=== PATIENT | male | born 1970 | race African-American/Black ===

== ENCOUNTER 2017-03-10 16:59 | Emergency (ER) | payer MEDICARE, OTHER ==
[~2017-03-10] VITALS: Ht 165.1 cm; Wt 49.0 kg
[~2017-03-10 16:59] MED LIST: ALLO100T PO; AMLO10TA80 PO; ASPI-1158; ATENOLOL PO; CALC0.253; CALC667C4 PO; DOXA4TAB3 PO; GARL1000 PO; HUM100IN SQ; INSU3INS6 SUBCUT; INSULIN; LISI40TA4; OMEP20TA80 PO
[2017-03-10] MEDS ORDERED: SODIUM CHLORIDE 0.9% 1,000 ML IV ONE (18:06)
[2017-03-10] MEDS ORDERED: MORPHINE SULFATE 4 MG/ML CPJ (NOT FOR IM USE) IV STA (18:06)
[2017-03-10] MEDS ORDERED: ONDANSETRON HCL 4MG/2ML VIAL IV STA (18:06)
[2017-03-10 18:53] LABS: BASOPHILS % 0.4 % (0.0-2.0); EOSINOPHILS % 3.5 % (0.0-5.0); HEMATOCRIT. 35.8 % (42.0-52.0); HEMOGLOBIN. 11.8 g/dL (14.0-18.0); MEAN CORPUSCULAR HEMOGLOBIN 28.7 pg (28.0-32.0); MEAN CORPUSCULAR VOLUME 86.8 fL (80.0-94.0); MEAN PLATELET VOLUME 10.3 fl (7.4-10.4); MONOCYTES % 7.5 % (2.0-8.0); NEUTROPHILS % 72.6 % (40.0-76.0); PLATELET 100 x1000/uL (130-400); RED BLOOD CELL COUNT 4.12 mill/uL (4.7-6.1); RED CELL DISTRIBUTION WIDTH 15.4 % (11.6-14.6)
[2017-03-10 18:55] LABS: PROTHROMBIN TIME 10.5 sec
[2017-03-10 19:06] LABS: CARBON DIOXIDE 27 mEq/L (21-32); CHLORIDE 108 mEq/L (98-107); ETHANOL BLOOD < 10 mg/dL; TROPONIN I < 0.02 ng/mL (0.00-0.04)
[2017-03-10] MEDS ORDERED: HYDRALAZINE 20MG/ML VIAL IV ONE (19:45)
[2017-03-10 20:40] VITALS: BP 156/78
== END 2017-03-10 20:46 | disposition home or self-care (01) ==
LOC: ER 16:59 → CANBEDREQ 03-11 02:47
DX: R10.84 Generalized abdominal pain (principal); M54.5 Low back pain; F41.9 Anxiety disorder, unspecified; I12.0 Hypertensive chronic kidney disease with stage 5 chronic kidney disease or end stage renal disease; E11.22 Type 2 diabetes mellitus with diabetic chronic kidney disease; N18.6 End stage renal disease; Z99.2 Dependence on renal dialysis; K80.20 Calculus of gallbladder without cholecystitis without obstruction; K76.0 Fatty (change of) liver, not elsewhere classified; E78.00 Pure hypercholesterolemia, unspecified; Z88.0 Allergy status to penicillin; Z79.4 Long term (current) use of insulin; Z79.82 Long term (current) use of aspirin; Z79.899 Other long term (current) drug therapy; Z88.1 Allergy status to other antibiotic agents
CPT/HCPCS: 36415; 71010; 74176; 76705; 80053; 83605; 83690; 84484; 85025; 85610; 93005; 96361; 96374; 96375; 99285; G0482; J2270; J2405; J7030

== ENCOUNTER → 2017-04-05 | Outpatient (CLI) | payer MEDICARE, OTHER | END | disposition home or self-care (01) | LOC: RAD 12:13 | PROVIDERS: ATTEND Internal Medicine Nephrology | DX: Z01.818 Encounter for other preprocedural examination (principal); N18.5 Chronic kidney disease, stage 5; R05 Cough | CPT/HCPCS: 71010 ==

== ENCOUNTER 2017-11-18 12:43 | Emergency (ER) | payer MEDICARE, MEDICAID ==
[~2017-11-18] VITALS: Ht 165.1 cm; Wt 89.0 kg
[~2017-11-18 12:43] MED LIST changes: +OMEP20TA2 PO; -OMEP20TA80 PO
[2017-11-18 18:16] VITALS: BP 134/72
== END 2017-11-18 18:18 | disposition home or self-care (01) ==
LOC: ER 13:20
DX: S80.11XA Contusion of right lower leg, initial encounter (principal); L03.115 Cellulitis of right lower limb; E11.9 Type 2 diabetes mellitus without complications; E78.00 Pure hypercholesterolemia, unspecified; I10 Essential (primary) hypertension; Z79.4 Long term (current) use of insulin; Z88.0 Allergy status to penicillin; Z88.3 Allergy status to other anti-infective agents; Z99.2 Dependence on renal dialysis; Z79.82 Long term (current) use of aspirin; W22.8XXA Striking against or struck by other objects, initial encounter; Y93.84 Activity, sleeping; Y92.89 Other specified places as the place of occurrence of the external cause
CPT/HCPCS: 93971; 99284

== ENCOUNTER 2018-04-20 08:54 | Inpatient (IN) | payer MEDICARE, MEDICAID ==
[~2018-04-20] VITALS: Ht 165.1 cm; Wt 84.8 kg
[2018-04-20] MEDS ORDERED: ALBUTEROL (0.083%) 2.5MG/3ML NEB HHN STA (09:13)
[2018-04-20] MEDS ORDERED: METHYLPREDNISOLONE SOD SUCC 125 MG/2 ML VIAL IV STA (09:13)
[2018-04-20] MEDS ORDERED: IPRATROPIUM BROMIDE (0.02%) 0.5MG/2.5ML NEB HHN STA (09:13)
[2018-04-20] MEDS ORDERED: IPRATROPIUM/ALBUTEROL 0.5-3(2.5)MG/3ML NEB ONE (09:43)
[2018-04-20] MEDS ORDERED: DIPHENHYDRAMINE 50MG/ML VIAL IV ONE (09:45)
[2018-04-20] MEDS ORDERED: VANCOMYCIN 1 G PREMIX 200 ML IV SCH (09:45)
[2018-04-20] MEDS ORDERED: AZITHROMYCIN 500 MG in DEXT 5% WATER 250 ML IV STA (09:52)
[2018-04-20 10:01] LABS: BASOPHILS % 0.7 % (0.0-2.0); EOSINOPHILS % 11.3 % (0.0-5.0); HEMATOCRIT. 24.3 % (42.0-52.0); HEMOGLOBIN. 8.2 g/dL (14.0-18.0); LYMPHOCYTES % 14.2 % (20.0-50.0); MEAN CORPUSCULAR VOLUME 91.5 fL (80.0-94.0); MEAN PLATELET VOLUME 11.5 fl (7.4-10.4); MONOCYTES % 10.4 % (2.0-8.0); NEUTROPHILS % 63.4 % (40.0-76.0); PLATELET 100 x1000/uL (130-400); RED BLOOD CELL COUNT 2.66 mill/uL (4.7-6.1); RED CELL DISTRIBUTION WIDTH 15.7 % (11.6-14.6)
[2018-04-20 10:09] LABS: CHLORIDE 103 mEq/L (98-107)
[2018-04-20 10:11] LABS: INR 1.1; PARTIAL THROMBOPLASTIN TIME 24.5 sec (23.4-31.0); PROTHROMBIN TIME 10.7 sec (9.1-11.1)
[2018-04-20 10:25] LABS: PHOSPHORUS 8.3 mg/dL (2.5-4.9)
[2018-04-20 12:30] VITALS: BP 145/76
[2018-04-20 13:00] VITALS: BP 145/76
[2018-04-20] MEDS ORDERED: METO-293 MT (13:09)
[2018-04-20] MEDS ORDERED: ACETAMINOPHEN 325MG TABLET PO PRN (14:30)
[2018-04-20] MEDS ORDERED: LACTULOSE 20G/30ML UDC PO PRN (14:30)
[2018-04-20] MEDS ORDERED: DEXTROSE 50% WATER 50ML SYRINGE IV PRN (14:45)
[2018-04-20] MEDS ORDERED: LOSARTAN POTASSIUM 50 MG TABLET PO SCH (15:00)
[2018-04-20 16:11] VITALS: BP 161/74
[2018-04-20] MEDS: INSULIN LISPRO 100 UNITS/ML SUBCUT SCH ×2 (17:03→20:44)
[2018-04-20] MEDS: BLOOD SUGAR DIAGNOSTIC STRIP TEST SCH ×2 (17:32→20:44)
[2018-04-20] MEDS: ASPIRIN 81MG TABLET PO SCH (17:34)
[2018-04-20] MEDS: METOCLOPRAMIDE HCL 5MG TABLET PO SCH ×2 (17:34→20:43)
[2018-04-20] MEDS: ATENOLOL 50 MG TABLET PO SCH (17:34)
[2018-04-20] MEDS: AMLODIPINE 10MG TABLET PO SCH (17:34)
[2018-04-20] MEDS: CALCIUM ACETATE 667MG CAPSULE PO SCH (17:34)
[2018-04-20] MEDS: ALLOPURINOL 100 MG TABLET PO SCH (17:34)
[2018-04-20 20:00] VITALS: BP 175/90
[2018-04-20] MEDS ORDERED: DOXAZOSIN MESYLATE 4MG TABLET PO SCH (21:00)
[2018-04-20] MEDS ORDERED: EPOETIN ALFA 10000UNITS/ML VIAL SUBCUT NR (21:00)
[2018-04-20] MEDS: ZOLPIDEM TARTRATE 5MG TABLET PO PRN (21:24)
[2018-04-20] MEDS: DIPHENHYDRAMINE 25MG CAPSULE PO PRN (21:29)
[2018-04-20] MEDS ORDERED: INSULIN GLARGINE UD 100 UNITS/ML SYR SUBCUT SCH (22:00)
[2018-04-21] VITALS: BP 166/85
[2018-04-21 04:00] VITALS: BP 164/76
[2018-04-21] MEDS: METOCLOPRAMIDE HCL 5MG TABLET PO SCH ×4 (06:39→21:02)
[2018-04-21] MEDS: BLOOD SUGAR DIAGNOSTIC STRIP TEST SCH ×4 (06:40→20:38)
[2018-04-21] MEDS: INSULIN LISPRO 100 UNITS/ML SUBCUT SCH ×4 (06:40→20:38)
[2018-04-21 07:43] VITALS: BP 165/85
[2018-04-21 07:48] LABS: BASOPHILS % 0.1 % (0.0-2.0); EOSINOPHILS % 0.1 % (0.0-5.0); HEMATOCRIT. 25.6 % (42.0-52.0); HEMOGLOBIN. 8.6 g/dL (14.0-18.0); LYMPHOCYTES % 11.6 % (20.0-50.0); MEAN CORPUSCULAR HEMOGLOBIN 30.5 pg (28.0-32.0); MEAN CORPUSCULAR VOLUME 90.6 fL (80.0-94.0); MEAN PLATELET VOLUME 11.7 fl (7.4-10.4); MONOCYTES % 6.6 % (2.0-8.0); NEUTROPHILS % 81.6 % (40.0-76.0); PLATELET 99 x1000/uL (130-400); RED BLOOD CELL COUNT 2.82 mill/uL (4.7-6.1); RED CELL DISTRIBUTION WIDTH 15.7 % (11.6-14.6)
[2018-04-21] MEDS: ASPIRIN 81MG TABLET PO SCH (08:09)
[2018-04-21] MEDS: ALLOPURINOL 100 MG TABLET PO SCH (08:09)
[2018-04-21] MEDS: CALCIUM ACETATE 667MG CAPSULE PO SCH ×3 (08:09→17:56)
[2018-04-21] MEDS: ATENOLOL 50 MG TABLET PO SCH (08:09)
[2018-04-21] MEDS: AMLODIPINE 10MG TABLET PO SCH (08:09)
[2018-04-21] MEDS: FOLIC ACID/VITAMIN B COMP W-C TABLET PO SCH (08:10)
[2018-04-21 08:26] LABS: CHLORIDE 101 mEq/L (98-107)
[2018-04-21 08:36] LABS: LDL CHOLESTEROL 75 mg/dL (5-100)
[2018-04-21 08:37] LABS: HDL CHOLESTEROL 37 mg/dL (40-59)
[2018-04-21 08:38] LABS: TOTAL IRON BINDING CAPACITY 186 ug/dL (250-450)
[2018-04-21] MEDS ORDERED: CALCITRIOL 0.25MCG CAPSULE PO SCH (09:00)
[2018-04-21] MEDS ORDERED: ALBUTEROL (0.083%) 2.5MG/3ML NEB HHN NR (10:30)
[2018-04-21] MEDS ORDERED: CLONIDINE 0.1MG TABLET PO PRN (10:30)
[2018-04-21] MEDS ORDERED: IPRATROPIUM/ALBUTEROL 0.5-3(2.5)MG/3ML NEB HHN PRN (10:45)
[2018-04-21] MEDS: AZITHROMYCIN 500 MG in DEXT 5% WATER 250 ML IV SCH (11:30)
[2018-04-21] MEDS: DOXAZOSIN MESYLATE 4MG TABLET PO SCH ×2 (11:31→21:02)
[2018-04-21 12:00] VITALS: BP 155/80
[2018-04-21] MEDS: IPRATROPIUM/ALBUTEROL 0.5-3(2.5)MG/3ML NEB HHN SCH ×4 (13:20→21:02)
[2018-04-21 16:00] VITALS: BP 138/62
[2018-04-21 20:00] VITALS: BP 139/72
[2018-04-21] MEDS ORDERED: INSULIN GLARGINE UD 100 UNITS/ML SYR SUBCUT SCH (22:00)
[2018-04-21] MEDS: ZOLPIDEM TARTRATE 5MG TABLET PO PRN (22:01)
[2018-04-21] MEDS: DIPHENHYDRAMINE 25MG CAPSULE PO PRN (22:01)
[2018-04-22] VITALS: BP 159/81
[2018-04-22] MEDS: IPRATROPIUM/ALBUTEROL 0.5-3(2.5)MG/3ML NEB HHN SCH ×4 (03:33→12:45)
[2018-04-22 04:00] VITALS: BP 160/76
[2018-04-22] MEDS: METOCLOPRAMIDE HCL 5MG TABLET PO SCH ×2 (05:57→12:12)
[2018-04-22] MEDS: INSULIN LISPRO 100 UNITS/ML SUBCUT SCH ×2 (06:12→12:25)
[2018-04-22] MEDS: BLOOD SUGAR DIAGNOSTIC STRIP TEST SCH ×2 (06:12→12:12)
[2018-04-22 08:00] VITALS: BP 150/79
[2018-04-22] MEDS: FOLIC ACID/VITAMIN B COMP W-C TABLET PO SCH (09:12)
[2018-04-22] MEDS: ATENOLOL 50 MG TABLET PO SCH (09:12)
[2018-04-22] MEDS: CALCIUM ACETATE 667MG CAPSULE PO SCH ×2 (09:12→12:12)
[2018-04-22] MEDS: AMLODIPINE 10MG TABLET PO SCH (09:12)
[2018-04-22] MEDS: DOXAZOSIN MESYLATE 4MG TABLET PO SCH (09:13)
[2018-04-22] MEDS: ALLOPURINOL 100 MG TABLET PO SCH (09:13)
[2018-04-22] MEDS: ASPIRIN 81MG TABLET PO SCH (09:13)
[2018-04-22 12:00] VITALS: BP 137/73
[2018-04-22] MEDS: AZITHROMYCIN 500 MG in DEXT 5% WATER 250 ML IV SCH (12:12)
[2018-04-22] MEDS ORDERED: AZIT500T5 MT (14:18)
[2018-04-22 14:21] VITALS: BP 137/73
[2018-04-22] MEDS ORDERED: EPOETIN ALFA 4000UNITS/ML VIAL SUBCUT SCH (21:00)
== END 2018-04-22 14:48 | disposition home or self-care (01) | DRG 193 ==
LOC: ER 09:27 → 8WST 09:56 → EDBEDREQ 10:00 → ENRESERV 10:10
PROVIDERS: ADMIT Specialist; ATTEND Specialist
DX: J18.9 Pneumonia, unspecified organism (principal); N18.6 End stage renal disease; J45.901 Unspecified asthma with (acute) exacerbation; I12.0 Hypertensive chronic kidney disease with stage 5 chronic kidney disease or end stage renal disease; E46 Unspecified protein-calorie malnutrition; N25.81 Secondary hyperparathyroidism of renal origin; D64.9 Anemia, unspecified; E11.65 Type 2 diabetes mellitus with hyperglycemia; E11.22 Type 2 diabetes mellitus with diabetic chronic kidney disease; E83.39 Other disorders of phosphorus metabolism; Z90.49 Acquired absence of other specified parts of digestive tract; Z82.49 Family history of ischemic heart disease and other diseases of the circulatory system; Z83.3 Family history of diabetes mellitus; Z68.31 Body mass index [BMI] 31.0-31.9, adult; Z99.2 Dependence on renal dialysis; Z88.0 Allergy status to penicillin; Z88.1 Allergy status to other antibiotic agents; Z88.8 Allergy status to other drugs, medicaments and biological substances; Z79.4 Long term (current) use of insulin; Z79.82 Long term (current) use of aspirin; Z79.899 Other long term (current) drug therapy
CPT/HCPCS: 36415; 71045; 80053; 80061; 82728; 82962; 83036; 83540; 83550; 83605; 83735; 84100; 84443; 84484; 85025; 85610; 85730; 87040; 87070; 87205; 89050; 93005; 94640; J0456; J0885; J1815; J2930; J3370; J7060; J7611; J7620; J8597; Q0163

== ENCOUNTER 2018-07-04 22:17 | Inpatient (IN) | payer MEDICARE, MEDICAID ==
[~2018-07-04] VITALS: Ht 165.1 cm; Wt 83.5 kg
[~2018-07-04 22:17] MED LIST changes: +AZIT500T5 MT; -CALC0.253; -GARL1000 PO; -HUM100IN SQ; -INSULIN; -LISI40TA4; +METO-293 MT; -OMEP20TA2 PO
[2018-07-04] MEDS ORDERED: METHYLPREDNISOLONE SOD SUCC 125 MG/2 ML VIAL IV STA (23:22)
[2018-07-04] MEDS ORDERED: AZITHROMYCIN 500 MG in DEXT 5% WATER 250 ML IV SCH (23:30)
[2018-07-05 00:22] LABS: BASOPHILS % 0.6 % (0.0-2.0); EOSINOPHILS % 5.4 % (0.0-5.0); HEMATOCRIT. 34.3 % (42.0-52.0); HEMOGLOBIN. 11.3 g/dL (14.0-18.0); LYMPHOCYTES % 17.8 % (20.0-50.0); MEAN CORPUSCULAR HEMOGLOBIN 30.8 pg (28.0-32.0); MEAN CORPUSCULAR VOLUME 93.8 fL (80.0-94.0); MEAN PLATELET VOLUME 10.6 fl (7.4-10.4); NEUTROPHILS % 68.2 % (40.0-76.0); PLATELET 100 x1000/uL (130-400); RED BLOOD CELL COUNT 3.65 mill/uL (4.7-6.1); RED CELL DISTRIBUTION WIDTH 14.2 % (11.6-14.6)
[2018-07-05 00:25] LABS: CHLORIDE 102 mEq/L (98-107)
[2018-07-05 00:38] LABS: INR 1.1; PARTIAL THROMBOPLASTIN TIME 26.3 sec (23.4-31.0); PROTHROMBIN TIME 10.7 sec (9.1-11.1)
[2018-07-05] MEDS ORDERED: ASPIRIN 81MG TABLET PO ONE (02:30)
[2018-07-05] MEDS ORDERED: IPRATROPIUM/ALBUTEROL 0.5-3(2.5)MG/3ML NEB HHN ONE (02:30)
[2018-07-05] MEDS ORDERED: FUROSEMIDE 40MG/4ML VIAL IVP ONE (02:30)
[2018-07-05 05:05] VITALS: BP 156/86
[2018-07-05] MEDS ORDERED: DEXTROSE 50% WATER 50ML SYRINGE IV PRN (06:00)
[2018-07-05] MEDS ORDERED: LACTULOSE 20G/30ML UDC PO PRN (06:00)
[2018-07-05] MEDS ORDERED: ACETAMINOPHEN 325MG TABLET PO PRN (06:00)
[2018-07-05] MEDS ORDERED: ATEN50TA PO (06:02)
[2018-07-05] MEDS: BLOOD SUGAR DIAGNOSTIC STRIP TEST SCH ×4 (06:35→21:54)
[2018-07-05] MEDS: INSULIN LISPRO 100 UNITS/ML SUBCUT SCH ×4 (06:48→21:00)
[2018-07-05 08:00] VITALS: BP 173/91
[2018-07-05] MEDS ORDERED: MEDICATION NOT ON FORMULARY EA (Atenolol 50 MG) PO SCH (09:00)
[2018-07-05] MEDS: AMLODIPINE 10MG TABLET PO SCH (09:16)
[2018-07-05] MEDS: ATENOLOL 50 MG TABLET PO SCH (09:16)
[2018-07-05 10:30] VITALS: BP 156/88
[2018-07-05 12:10] VITALS: BP 155/87
[2018-07-05 16:50] VITALS: BP 151/86
[2018-07-05] MEDS: IPRATROPIUM/ALBUTEROL 0.5-3(2.5)MG/3ML NEB HHN PRN (17:21)
[2018-07-05 20:00] VITALS: BP 144/80
[2018-07-05] MEDS ORDERED: ZOLPIDEM TARTRATE 5MG TABLET PO PRN (21:00)
[2018-07-06] VITALS (10 sets, daily range): BP systolic 138–169; BP diastolic 80–92
[2018-07-06] MEDS: BLOOD SUGAR DIAGNOSTIC STRIP TEST SCH ×4 (06:32→21:00)
[2018-07-06] MEDS: INSULIN LISPRO 100 UNITS/ML SUBCUT SCH ×4 (06:32→21:00)
[2018-07-06] MEDS ORDERED: GENTAMICIN 120MG PREMIX 100 ML IV SCH (08:30)
[2018-07-06] MEDS: AMLODIPINE 10MG TABLET PO SCH (10:57)
[2018-07-06] MEDS: ATENOLOL 50 MG TABLET PO SCH (10:57)
[2018-07-06] MEDS ORDERED: HEPARIN 100 UNITS/1 ML VIAL IVF NR (13:00)
[2018-07-06] MEDS: IPRATROPIUM/ALBUTEROL 0.5-3(2.5)MG/3ML NEB HHN PRN (14:22)
[2018-07-06] MEDS ORDERED: VANCOMYCIN 1250MG in DEXTROSE 5% WATER 250ML IV SCH (15:00)
[2018-07-07] VITALS: BP 165/85
[2018-07-07] MEDS: BLOOD SUGAR DIAGNOSTIC STRIP TEST SCH ×2 (07:10→11:58)
[2018-07-07 07:39] LABS: BASOPHILS % 0.9 % (0.0-2.0); EOSINOPHILS % 4.2 % (0.0-5.0); HEMATOCRIT. 37.1 % (42.0-52.0); LYMPHOCYTES % 17.6 % (20.0-50.0); MEAN CORPUSCULAR HEMOGLOBIN 30.4 pg (28.0-32.0); MEAN CORPUSCULAR VOLUME 93.9 fL (80.0-94.0); MEAN PLATELET VOLUME 11.2 fl (7.4-10.4); MONOCYTES % 8.6 % (2.0-8.0); NEUTROPHILS % 68.7 % (40.0-76.0); PLATELET 116 x1000/uL (130-400); RED BLOOD CELL COUNT 3.95 mill/uL (4.7-6.1); RED CELL DISTRIBUTION WIDTH 14.4 % (11.6-14.6)
[2018-07-07] MEDS: INSULIN LISPRO 100 UNITS/ML SUBCUT SCH ×2 (07:40→11:58)
[2018-07-07 08:00] VITALS: BP 166/93
[2018-07-07] MEDS: ATENOLOL 50 MG TABLET PO SCH (08:30)
[2018-07-07] MEDS: AMLODIPINE 10MG TABLET PO SCH (08:30)
[2018-07-07 08:33] LABS: GENTAMICIN RANDOM 2.6 ug/mL
[2018-07-07] MEDS ORDERED: VANCOMYCIN 1250MG in DEXTROSE 5% WATER 250ML IV NR (14:00)
== END 2018-07-07 14:30 | disposition left against medical advice (07) | DRG 291 ==
LOC: ER 22:17 → 8WST 07-05 03:45 → EDBEDREQTM 07-05 03:48 → EDBEDREQ 07-05 03:48 → EDBEDREQDT 07-05 03:48 → ENRESERV 07-05 03:55 → 8WST 07-05 07:41
PROVIDERS: ADMIT Specialist; ATTEND Specialist
PROC: 3E1M39Z Irrigation of Peritoneal Cavity using Dialysate, Percutaneous Approach (ICD-10-PCS; principal; 2018-07-06)
DX: I13.2 Hypertensive heart and chronic kidney disease with heart failure and with stage 5 chronic kidney disease, or end stage renal disease (principal); I50.31 Acute diastolic (congestive) heart failure; N18.6 End stage renal disease; L02.214 Cutaneous abscess of groin; E46 Unspecified protein-calorie malnutrition; N25.81 Secondary hyperparathyroidism of renal origin; E11.22 Type 2 diabetes mellitus with diabetic chronic kidney disease; D64.9 Anemia, unspecified; J44.9 Chronic obstructive pulmonary disease, unspecified; M10.9 Gout, unspecified; Z53.21 Procedure and treatment not carried out due to patient leaving prior to being seen by health care provider; N49.2 Inflammatory disorders of scrotum; Z83.3 Family history of diabetes mellitus; Z90.49 Acquired absence of other specified parts of digestive tract; Z99.2 Dependence on renal dialysis; Z88.1 Allergy status to other antibiotic agents; Z88.0 Allergy status to penicillin; Z82.49 Family history of ischemic heart disease and other diseases of the circulatory system; Z79.1 Long term (current) use of non-steroidal anti-inflammatories (NSAID); Z88.8 Allergy status to other drugs, medicaments and biological substances; Z91.15 Patient's noncompliance with renal dialysis; Z79.84 Long term (current) use of oral hypoglycemic drugs; Z79.82 Long term (current) use of aspirin; Z79.899 Other long term (current) drug therapy; Z79.2 Long term (current) use of antibiotics; Z68.30 Body mass index [BMI] 30.0-30.9, adult
CPT/HCPCS: 36415; 71045; 80048; 80061; 80170; 80202; 82962; 83036; 83605; 83880; 84484; 87070; 87077; 93005; 93306; 94640; 96365; 96366; 96375; 99285; J0456; J1580; J1642; J1815; J1940; J2930; J3370; J7060; J7620

== ENCOUNTER 2018-08-08 21:19 | Emergency (ER) | payer MEDICARE, MEDICAID ==
[~2018-08-08] VITALS: Ht 165.1 cm; Wt 82.0 kg
[~2018-08-08 21:19] MED LIST changes: +ATEN50TA PO; -ATENOLOL PO
[2018-08-08 22:03] VITALS: BP 148/79
== END 2018-08-08 23:41 | disposition left against medical advice (07) ==
LOC: ER 21:19
DX: H57.11 Ocular pain, right eye (principal); I10 Essential (primary) hypertension; Z90.49 Acquired absence of other specified parts of digestive tract; Z53.21 Procedure and treatment not carried out due to patient leaving prior to being seen by health care provider